=== PATIENT | female | born 1960 ===

== ENCOUNTER 2019-01-29 00:39 | Inpatient (IN) | payer BC ==
--- NOTE | 2019-01-23 14:51 | NUR ---
SPOKE WITH DR. MEYER ABOUT ALLERGIES TO NOVACAINE AND BUPIVACAINE AND HE STATED HE WAS FINE TO GIVEN THE OR COCKTAIL WITH ROPIVACAINE
[2019-01-28 13:36] LABS: INR 1.01
[~2019-01-29] VITALS: Ht 165.1 cm; Wt 88.0 kg
[2019-01-29] VITALS (13 sets, daily range): BP systolic 105–146; BP diastolic 59–87
[~2019-01-29 00:39] MED LIST: ACE3 PO; ACET500T68 PO; AMIT75TA42 PO; ATOR10TA24 PO; FURO-45 PO; LEVO125T77 PO; METO25TA93 PO; SITA1TAB17 PO
[2019-01-29] MEDS ORDERED: PROPOFOL EMUL(*) 10MG/ML 20 ML 20 ML ONE (07:27)
[2019-01-29] MEDS ORDERED: LIDOCAINE 2% IV 100 MG/5ML SYR ONE (07:28)
[2019-01-29] MEDS ORDERED: fentaNYL CITR 250 MCG/5 ML AMP ONE (08:59)
[2019-01-29] MEDS ORDERED: EPINEPHrine HCL 1 MG/ML AMP ONE (08:59)
[2019-01-29] MEDS ORDERED: DEXAMETHASONE SOD PHOS 10MG/ML ONE (09:01)
[2019-01-29] MEDS ORDERED: ROPIVACAINE 0.5% 20 ML VIAL ONE (09:02)
[2019-01-29] MEDS ORDERED: LIDOCAINE MPF 1% 5 ML VIAL ONE (09:04)
[2019-01-29] MEDS ORDERED: DEXAMETHASONE SOD 4 MG/ML VIAL ONE (09:06)
[2019-01-29] MEDS ORDERED: ONDANSETRON 4 MG/2 ML VIAL ONE (10:18)
[2019-01-29] MEDS ORDERED: KETAMINE HCL 200 MG/20 ML MDV ONE ×2 (10:21→11:28)
[2019-01-29] MEDS ORDERED: BACITRACIN 50000 UNIT/VIAL 100,000 UNIT in NS 0.9% 3000 ML IRRIGATION BAG 3,000 ML IR ONE (10:30)
[2019-01-29] MEDS ORDERED: TRANEXAMIC AC 1000 MG/10ML SDV 1,000 MG in DEXTROSE 5% 50 ML BAG 50 ML IV ONE (10:30)
[2019-01-29] MEDS ORDERED: ROPIVACAINE/EPI/CLONIDINE/KET 50 ML SYRINGE INJ ONE ×2 (12:00→12:45)
[2019-01-29] MEDS ORDERED: MAGNESIUM CITRATE 300 ML BTL PO PRN (12:15)
[2019-01-29] MEDS ORDERED: diphenhydrAMINE 25 MG CAP PO PRN (12:15)
[2019-01-29] MEDS ORDERED: FLUSH 10 ML SYR IVP PRN (12:15)
[2019-01-29] MEDS ORDERED: KETOROLAC 30 MG/ML VIAL IVP PRN (12:15)
[2019-01-29] MEDS ORDERED: LR 1000 ML BAG 1000 ML IV PRN (12:15)
[2019-01-29] MEDS ORDERED: PROMETHAZINE 25 MG/ML 1 ML AMP IVP PRN (12:15)
[2019-01-29] MEDS ORDERED: BISACODYL 10 MG SUPP PR PRN (12:15)
[2019-01-29] MEDS ORDERED: MAGNESIUM HYDROXIDE* 30ML UDCP PO PRN (12:15)
[2019-01-29] MEDS ORDERED: oxyCODON/ACET (*)5/325MG (CII) 1 TAB TAB PO PRN (12:15)
[2019-01-29] MEDS ORDERED: ONDANSETRON 4 MG/2 ML VIAL IVP PRN (12:15)
[2019-01-29] MEDS ORDERED: diphenhydrAMINE 50 MG/ML VIAL IVP PRN (12:15)
[2019-01-29] MEDS ORDERED: ZOLPIDEM TARTRATE 5 MG TAB PO PRN (12:15)
[2019-01-29] MEDS ORDERED: ceFAZolin(*) 2GM/D5W 50ML 50 ML IVPB ONE (12:45)
[2019-01-29] MEDS ORDERED: NORMOSOL R SOLN(*) 1000 ML BAG 1,000 ML IV PRN (12:45)
[2019-01-29] MEDS ORDERED: PREGABALIN 150 MG CAPSULE PO ONE (12:45)
[2019-01-29] MEDS ORDERED: FAMOTIDINE 20 MG TAB PO ONE (12:45)
[2019-01-29] MEDS ORDERED: MIDAZOLAM 2 MG/2 ML VIAL IVP PRN (12:45)
[2019-01-29] MEDS ORDERED: CELECOXIB 200 MG CAP PO ONE (12:45)
--- NOTE | 2019-01-29 12:51 | OPERATIVE REPORT 1 ---
EVENT DATE: January 29, 2019 SURGEON: Humberto Vincent MD ANESTHESIOLOGIST: Gonsalo Garcia MD ANESTHESIA: General plus block. TEMPERER: Weston Schulz PA-C PREOPERATIVE DIAGNOSIS Left knee osteoarthritis in the medial compartment. POSTOPERATIVE DIAGNOSIS Left knee osteoarthritis in the medial compartment. PROCEDURE PERFORMED Left medial compartmental knee arthroplasty on the medial side. FINDINGS The patient had a significant amount of arthritic changes on the knee inside but was amenable for a unicompartment knee arthroplasty. ESTIMATED BLOOD LOSS None. DRAINS None. COMPLICATIONS None. TOURNIQUET TIME Around 62 minutes. IMPLANTS USED [place] unicompartmental knee arthroplasty with a medium femur, a size H tibial tray and a 3 mm bearing. SPECIMENS None. INDICATIONS AND HISTORY This patient is a 58-year-old female that presented to my clinic for evaluation of left knee pain and irritation going on for some time. She continued to have pain and irritation despite conservative management and so therefore she wanted to go ahead with medial compartment arthroplasty to try and not do a total knee replacement and to try and give her some relief for as long as to come, and so we went over the risks and benefits associated with it and she understands there is no guarantee and she may have to be converted to a total knee replacement at some point. After discussion of those risks and benefits, informed consent was obtained at the last clinic visit and we got her set up to do this today. DESCRIPTION OF PROCEDURE As the patient was brought in to the operating room, she and the procedure were both verified. She was placed supine on the operative table and given a knee block by anesthesia. She was then induced and intubated and the left lower extremity was then prepped and draped in the usual fashion and a timeout was observed verifying the correct patient and procedure. The standard incision was made over the anterior aspect of the knee through a prior surgical incision. I was able to go through the skin and subcutaneous tissue and then go over to the medial side. Once I was over to the medial side, I did a medial parapatellar approach through the quad tendon, and then down around the patella and then along the patellar tendon. I was then able to remove some of the scar tissue in this area and also the medial meniscus in the anterior portion and then get access to the femur and the tibia. I then sized the femur to a medium size femur. We then put on the outrigger jig in order to cut the tibia and then pinned the tibial cutting post in place and then was able to cut the tibia by first cutting the sagittal direction right next to the ACL and then cutting straight across the tibia on the medial side. Once I was able to this, I was then able to remove that plate which was cut in between an A and B and an A was ultimately used. I then removed a little bit of the posterior meniscus and then turned attention to the femur. Once I drilled the intramedullary canal of the femur, I then put in the intramedullary guide and then put in the standard jig cutting block sized to a 4 on the medial side, drilled and then pinned it in place. I then removed all of the instrumentation and irrigated with copious amounts of saline. We then put in the 0 spicket and then reamed down to the 0 spicket. I then trialed the blue trials to make sure that we had 3 to 4 on the flexion component and then the 1 fit well but the 2 did not on the 15-degrees of extension, so therefore we then removed that, put in the #2 spicket and then reamed down again. This then allowed everything to fit better with flexion and extension gap balancing. I then was able to put in the secondary cutting and reaming guide onto the femur. I cut the posterior osteophytes and then reamed down on this area. I then also removed any excess bone with rongeurs in this area and then went to the proximal tibia where I was able to put in the A guide and then used the saw- toothbrush type copy examiner in order to cut the groove into the tibia. Once everything was cut, I then put in the final trial components and then made sure that the 3 was an excellent trial component. We then irrigated with copious amounts of saline which we had throughout the case with Irrisept and then pulse lavage after removing those components and then dried everything out and made it prep for cement. We then cemented the tibial component in first, then the femoral component, removing all of the excess cement. This was then followed by placement of the 4 blue guide into the knee and then holding it at 15-degrees of flexion in order to let the cement harden. I then removed this, trialed the 3 once again, it looked really good and so therefore we put in a 3 final poly component and then the wound was irrigated again and then the parapatellar approach was closed with a 2-0 Quill. This was then followed by 3-0 Quill in the subcutaneous tissue and a subcuticular 4-0 running Monocryl and then a Primapore dressing over the top. The tourniquet was let down just after 60 minutes and the patient was awakened and extubated and transferred to the PACU in stable condition. ANGI
--- NOTE | 2019-01-29 12:59 | RADIOLOGY IMAGING REPORT ---
FACILITY: [facility] [place] PATIENT NAME: Prerna Gomez : 1960 MR: [id number] V: [id number] EXAM DATE: ORDERING PHYSICIAN: JUDAH MEYER TECHNOLOGIST: Location: [facility] Patient: Prerna Gomez : 1960 Visit/Account:[id number] Date of Sevice: 01/29/2019 KNEE LIMITED LEFT HISTORY: Postop left knee arthroplasty ADDITIONAL HISTORY: None. COMPARISON: None. FINDINGS: 2 views were obtained of the left knee. Patient has undergone left knee hemiarthroplasty, components in the medial tibial plateau and medial femoral condyle are in anatomic alignment. There is no frac ture identified. No evidence of loosening. Lateral compartment of the knee is well maintained. Pat ellofemoral joint is of normal caliber. Osteophytes project off the margins of the patella. Small a mount of air present in the suprapatellar bursa. Bones are osteopenic. There are no lytic or sclerotic lesions. IMPRESSION: Status post left knee hemiarthroplasty with anatomic alignment of the components. There is no radiog raphic evidence of an acute complication. Report Dictated By: Echo Gee MD at 01/29/2019 12:49 PM Report E-Signed By: Echo Gee MD at 01/29/2019 12:51 PM WSN:CHARLES
--- NOTE | 2019-01-29 16:07 | Hospitalist Consultation ---
History of Present Illness Requesting Physician Dr. Vincent Reason for Consult Medical management of comorbidities. History of Present Illness S/P Left knee from Dr. Vincent. No surgical complications or concerns reported. EBL reported 0. History Problems: (1) Edema (2) Irregular heart rate (3) Hyperlipidemia (4) Hypothyroid (5) Sleep apnea (6) Fibromyalgia Home Meds Reported Medications Furosemide (FUROSEMIDE) 20 Mg Tablet, 1 TAB PO QDAY, TAB 01/22/19 Sitagliptin Phos/Metformin Hcl (JANUMET 50-1,000 MG TABLET) 1 Each Tablet, 1 EACH PO BID 01/22/19 Acetaminophen (TYLENOL EXTRA STRENGTH) 500 Mg Tablet, 500 MG PO PRN PRN for PAIN, TAB 08/23/16 Levothyroxine Sodium (SYNTHROID) 125 Mcg Tablet, 125 MCG PO HS 08/23/16 Metoprolol Tartrate (METOPROLOL TARTRATE) 25 Mg Tablet, 1 TAB PO HS, TAB 08/23/16 Amitriptyline Hcl (AMITRIPTYLINE HCL) 75 Mg Tablet, 75 MG PO QHS, #5 TAB 08/23/16 Atorvastatin Calcium (LIPITOR) 10 Mg Tablet, 1 TAB PO HS, TAB 08/23/16 Discontinued Reported Medications Acetaminophen/Codeine (TYLENOL #3 (OR EQUIV)) 1 Ea Tab, 1-2 EA PO Q4-6H PRN for PAIN, #60 TAB 0 Refills 08/30/16 Allergies: Coded Allergies: adhesive tape (Verified Allergy, Intermediate, RASH, 01/22/19) sumatriptan (Verified Allergy, Intermediate, FLUSH SKIN, 01/22/19) procaine (Verified Adverse Reaction, Severe, NUMBS THROAT(NOVOCAINE), 01/22/19) bupivacaine (Verified Adverse Reaction, Intermediate, NUMBS THROAT, 01/22/19) hydrocodone (Verified Adverse Reaction, Intermediate, MIGRAINE, 01/22/19) meperidine (Verified Adverse Reaction, Intermediate, MIGRAINE, 01/22/19) oxycodone (Verified Adverse Reaction, Intermediate, migraine, 01/22/19) codeine (Verified Adverse Reaction, Mild, MIGRAINE, 01/22/19) Uncoded Allergies: NOVACAINE (Adverse Reaction, Severe, NUMBS THROAT, 08/23/16) Patient History: FH: breast cancer MOTHER FH: esophageal cancer FATHER FH: stroke GRANDMOTHER Hx Smoking: Yes (1/2 PPD X 46 YEARS) Smoking Status: Former Smoker When Quit Tobacco?: 2018 Caffeine Intake: Coffee Caffeine/Cups Per Day: 2x/day Hx Alcohol Use: No Alcohol Used: Beer Hx Substance Use Disorder: No Social Drug Use: Never History of IV Drug Use: No Review of Systems All Systems Reviewed/Normal: Yes Constitutional: No Fever Neurological: No Syncope, No Confusion Cardiovascular: No Chest Pain, No Palpitations Respiratory: No Shortness of Breath, No Cough Gastrointestinal: No Nausea, No Vomiting Exam Vital Signs Vital Signs Date Time Temp Pulse Resp B/P (MAP) Pulse Ox O2 Delivery O2 Flow Rate FiO2 01/29/19 15:00 100 133/80 (97) 86 CPAP 3.0 01/29/19 13:53 97.8 16 General Appearance: Alert, Awake, No Acute Distress Neuro: No Gross deficits Cardiovascular: Regular Rate and Rhythm Respiratory: No Respiratory Distress, Clear to Auscultation GI: Abd Soft and Non-Tender Assessment and Plan Problems: (1) S/P knee replacement Assessment & Plan: S/P Left Knee by Dr. Vincent, EBL 0, No reported surgical concerns or complications. Pain management per Ortho. On Aspirin for anticoagulation. (2) Sleep apnea Assessment & Plan: Continue on home CPAP. She brought her machine in. RT to follow. (3) Irregular heart rate Assessment & Plan: Chronic Metoprolol for rate control. Continue Metoprolol with parameters. (4) Hyperlipidemia Assessment & Plan: Continue on Lisinopril. (5) Hypothyroid Assessment & Plan: Continue on Levothyroxine. (6) Fibromyalgia Assessment & Plan: Continue on Amitriptyline. (7) Edema Assessment & Plan: Per patient, no history of CHF. She states she takes daily Lasix for bilateral lower extremely swelling. Continue on Lasix with parameters. Will check BMP in am. Venous Thromboembolism Antithrombotics Is Pt On Any Antithrombotics?: No SHA NICHOLAS Jan 29, 2019 16:07
--- NOTE | 2019-01-29 16:51 | NUR ---
Physical Therapy Impression PT eval completed. Pt tolerated bed mobility and sit to/from stand with SBA/CGA. Pt ambulated with FWW x 150' in hallway and notes that pain is well controlled. Pt is anticipating home tomorrow with out pt PT if she does well with stairs. No CPM orders, as she has a unicompartmental knee arthroplasty Physical Therapy Goals 1. Pt to be modified indep with all bed mobility and sup<>sit trnsfrs 2. Pt to be modified indep with sit to/from stand transfers 3. Pt to be SBA/Mod indep with ambulation x 150' 4. Pt to christopher up/down 4 steps with rail and SBA/Mod indep Patient's Goals
[2019-01-29] MEDS ORDERED: NS(*) 0.9% 250 ML BAG 250 ML ONE (17:03)
[2019-01-29] MEDS: ceFAZolin(*) 2GM/D5W 50ML 50 ML IVPB SCH (17:09)
[2019-01-29] MEDS: INSULIN HUM LISPRO 100 UN/ML 3 ML VIAL SUBQ PRN ×2 (17:10→21:16)
[2019-01-29] MEDS ORDERED: ASPIRIN 325 MG TAB PO SCH (21:00)
[2019-01-29] MEDS ORDERED: ATORVASTATIN 10 MG TAB PO SCH (21:00)
[2019-01-29] MEDS ORDERED: METOPROLOL TART 50 MG TAB PO SCH (21:00)
[2019-01-29] MEDS ORDERED: AMITRIPTYLINE HCL 25 MG TAB PO SCH (21:00)
[2019-01-30 00:22] VITALS: BP 102/59
[2019-01-30] MEDS: ceFAZolin(*) 2GM/D5W 50ML 50 ML IVPB SCH ×2 (00:22→09:07)
[2019-01-30 03:28] VITALS: BP 118/63
[2019-01-30] MEDS ORDERED: LEVOTHYROXINE SOD 0.125 MG TAB PO SCH (06:00)
[2019-01-30 06:10] VITALS: BP 104/56
[2019-01-30 07:32] VITALS: BP 106/59
[2019-01-30 08:38] VITALS: Ht 165.1 cm; Wt 88.0 kg
[2019-01-30] MEDS ORDERED: ASPI-757 PO (08:47)
--- NOTE | 2019-01-30 08:57 | Hospitalist Progress Note ---
Subjective Progress Notes Subjective No acute events overnight. Requiring Oxygen during the day and through home CPAP machine at night. Patient Complains of: Neurological: No: Confusion, Weakness Cardiovascular: No: Chest Pain, Palpitations Respiratory: No: Congestion, Shortness of Breath Physical Exam Vital Signs Date Time Temp Pulse Resp B/P (MAP) Pulse Ox O2 Delivery O2 Flow Rate FiO2 01/30/19 08:00 95 Nasal Cannula 3.0 01/30/19 07:32 98.4 82 106/59 (75) 01/30/19 06:10 15 Intake and Output 01/30/19 01:03 Intake Total 2180 ml Balance 2180 ml Intake Oral 120 ml IV Total 2060 ml # Voids 6 General Appearance: Alert, Awake, No Acute Distress Neuro: No Gross deficits Cardiovascular: Regular Rate and Rhythm Respiratory: No Respiratory Distress, Clear to Auscultation Result Diagram: 01/30/1951501/30/19515 Assessment and Plan Problems: (1) S/P knee replacement Assessment & Plan: S/P Left Knee by Dr. Vincent, EBL 0, No reported surgical concerns or complications. Pain management per Ortho. On Aspirin for anticoagulation. PT/OT is working with her. She is requiring oxygen during the day, and through her CPAP at night. Will go home with oxygen when cleared from Surgery and PT/OT. (2) Sleep apnea Assessment & Plan: Requiring oxygen through CPAP at night, and through nasal cannula during the day. Will discharge home with O2 when appropriate. (3) Irregular heart rate Assessment & Plan: Chronic Metoprolol for rate control. Continue Metoprolol with parameters. (4) Hyperlipidemia Assessment & Plan: Continue on Lisinopril. (5) Hypothyroid Assessment & Plan: Continue on Levothyroxine. (6) Fibromyalgia Assessment & Plan: Continue on Amitriptyline. (7) Edema Assessment & Plan: Per patient, no history of CHF. She states she takes daily Lasix for bilateral lower extremely swelling. Continue on Lasix with parameters. Exam Sepsis Risk: No Definite Risk SHA NICHOLAS Jan 30, 2019 08:57
[2019-01-30] MEDS ORDERED: FUROSEMIDE 20 MG TAB PO SCH (09:00)
[2019-01-30 12:50] VITALS: BP 110/46
--- NOTE | 2019-01-30 13:20 | NUR ---
Physical Therapy Impression All PT goals met and ready for discharge from a mobility stand point. Physical Therapy Goals 1. Pt to be modified indep with all bed mobility and sup<>sit trnsfrs 2. Pt to be modified indep with sit to/from stand transfers 3. Pt to be SBA/Mod indep with ambulation x 150' 4. Pt to christopher up/down 4 steps with rail and SBA/Mod indep Patient's Goals
== END 2019-01-30 13:33 | disposition home or self-care (01) | DRG 470 ==
LOC: OR 00:39 → MED 13:50 → OBSVTOIN 13:50
PROVIDERS: ADMIT Orthopaedic Surgery; ATTEND Orthopaedic Surgery
PROC: 5A09357 Assistance with Respiratory Ventilation, Less than 24 Consecutive Hours, Continuous Positive Airway Pressure (ICD-10-PCS; 2019-01-29)
PROC: 0SRD0J9 Replacement of Left Knee Joint with Synthetic Substitute, Cemented, Open Approach (ICD-10-PCS; principal; 2019-01-29 10:14)
DX: M16.12 Unilateral primary osteoarthritis, left hip (principal); M79.7 Fibromyalgia; E78.5 Hyperlipidemia, unspecified; E03.9 Hypothyroidism, unspecified; G47.33 Obstructive sleep apnea (adult) (pediatric); K21.9 Gastro-esophageal reflux disease without esophagitis; E11.9 Type 2 diabetes mellitus without complications; E66.9 Obesity, unspecified; G62.9 Polyneuropathy, unspecified; Z88.5 Allergy status to narcotic agent; Z88.8 Allergy status to other drugs, medicaments and biological substances; Z87.891 Personal history of nicotine dependence; Z68.32 Body mass index [BMI] 32.0-32.9, adult; Z90.49 Acquired absence of other specified parts of digestive tract; Z90.710 Acquired absence of both cervix and uterus; Z79.84 Long term (current) use of oral hypoglycemic drugs
CPT/HCPCS: 36415; 36416; 82310; 82374; 82435; 82565; 82947; 82948; 84132; 84295; 84520; 85014; 85018; 85610; 86850; 86900; 86901; 96372; 97161; C1713; C1776; J0171; J0690; J1100; J2001; J2250; J2405; J2704; J2795; J3010; J3490; J7050; J7060